=== PATIENT | female | born 1975 | race Two or more races ===

== ENCOUNTER 2024-09-04 12:14 | Emergency (ER) | payer MEDICAID, SELFPAY ==
[2024-09-04 12:39] VITALS: BP 107/67
[2024-09-04 13:12] LABS: Hematocrit 39.3 % (37.0-47.0); Hemoglobin 12.6 g/dL (12.0-16.0); Mean Corp Hgb Conc. 32.1 g/dL (33.0-37.0); Mean Corpuscular Volume 84.2 fL (81.0-99.0); Nucleated Red Blood Cells % 0 %; Platelet Count 259 10^3/uL (130-400); Red Cell Dist. Width 13.1 % (11.5-14.5)
[2024-09-04 13:44] LABS: ALT (SGPT) 23 U/L (0-35); AST (SGOT) 22 U/L (14-36); Albumin 4.4 g/dl (3.5-5.0); Alkaline Phosphatase 48 U/L (38-126); Blood Urea Nitrogen 11 mg/dl (7-17); Calcium 9.0 mg/dl (8.4-10.2); Carbon Dioxide 24 mmol/L (22-30); Chloride 110 mmol/L (98-107); Glucose 128 mg/dl (70-99); Potassium 4.7 mmol/L (3.5-5.1); Sodium 140 mmol/L (135-145); Total Protein 7.5 g/dl (6.3-8.2); eGFR > 60.00
[2024-09-04 13:55] LABS: Troponin I < 0.012 ng/ml
[2024-09-04 14:05] VITALS: BP 114/70
[2024-09-04 15:00] VITALS: BP 102/66
--- NOTE | 2024-09-04 15:29 | ED.GENMED ---
History of Present Illness
General
Chief Complaint: Chest Pain
Source: patient
Exam Limitations: none
Time Seen by Provider: 09/04/24 15:22
History of Present Illness
History of Present Illness:
See MDM
Past History
Past History
ED Past Medical History: None
ED Past Surgical History: Appendectomy
Social History
Tobacco: Non-smoker
Alcohol: None
Drug: None
Personal:
Living: with family
Phy Exam
Physical Exam
Physical Exam:
See MDM
Scores
Heart Score for Chest Pain Patients
STEMI patient?: No
History: Slightly or Non-Suspicious
ECG: Normal
Age: >45 - <65 years
Risk Factors: No Risk Factors
Troponin: </= Normal Limit
Heart Score for Chest Pain Patients: 1
Heart Score Risk: 2.5% MACE over next 6 weeks
Course
Orders/Labs/Results
Orders:
Orders
09/04/24 12:14
Electrocardiogram (*1) Urgent
Reason for Study: Chest Pain
EKG- Treatment ONCE
09/04/24 12:51
CXR2 [CR Chest - 2 Views ] Urgent
Comment:
Reason For Exam: chest pain
09/04/24 13:00
CMP [Comprehensive Metabolic Panel] Urgent
Complete Blood Count/With Diff Urgent
Troponin I Urgent
09/04/24 15:09
Electrocardiogram (*1) Urgent
Reason for Study: Chest Pain
EKG- Treatment ONCE
09/04/24 15:11
Troponin I Urgent
09/04/24 15:28
Cyclobenzaprine HCl [Flexeril] 10 mg PO NOW STA
Ibuprofen [Motrin] 400 mg PO NOW STA
Abnormal Lab Results
09/04/24
13:00
MCHC 32.1 L g/dL
(33.0-37.0)
Chloride 110 H mmol/L
(98-107)
Glucose 128 H mg/dl
(70-99)
09/04/24 13:00
09/04/24 13:00
Vital Signs
Initial and Last Documented VS:
Initial Vital Signs
Temp Pulse Resp BP Pulse Ox
99.0 F 65 18 107/67 97
09/04/24 12:39 09/04/24 12:39 09/04/24 12:39 09/04/24 12:39 09/04/24 12:39
Last Documented Vital Signs
Temp Pulse Resp BP Pulse Ox
99.0 F 52 11 102/66 98
09/04/24 12:39 09/04/24 15:00 09/04/24 15:00 09/04/24 15:00 09/04/24 15:31
MDM/Problems Addressed
Differential Diagnosis Includes:
Note:
CHIEF COMPLAINT(S)
Chest pain
HISTORY OF PRESENT ILLNESS
The patient is a 49-year-old female presenting with a 3-day history of chest pain. The pain is reported as localized to the front left and extending to the back left, with some radiation down the arm. The patient denies any prior history of similar
chest pain. The patient confirmed experiencing the chest pain during the encounter. Notably, the pain has intensified today. The pain is not exacerbated by physical exertion as the patient attended the gym for the past three days without aggravation
of symptoms, although she mentioned muscle exercises did intensify the pain. Palpation of the affected area elicited some pain, consistent with musculoskeletal origin. Initial diagnostic workup, including blood tests, an electrocardiogram, and a
chest X-ray, were all within normal limits, alleviating initial concerns regarding cardiac etiology.
PHYSICAL EXAM
General: Well appearing and non-toxic
HEENT: protecting airway
Neck: appears supple
CV: No evidence of cyanosis. Regular rate and rhythm
Chest: Reproducible tenderness to left anterior intercostal musculature
Resp: No accessory muscle use. Lungs clear
Abd: Non-distended
Extremities: No deformities
Neuro: alert
Psych: Normal affect
Skin: Intact
Nursing notes reviewed and vital signs reviewed.
PROBLEM LIST
Acute:
- Chest pain, likely musculoskeletal in origin
PLAN
- Begin treatment with ibuprofen or a similar non-steroidal anti-inflammatory drug, and a muscle relaxant.
- Await results of a second set of blood work to further exclude cardiac involvement before discharge.
DIFFERENTIAL DIAGNOSIS
The Differential Diagnosis includes, in no particular order and is not limited to:
- Musculoskeletal chest pain
- Costochondritis
- Gastroesophageal reflux disease
- Panic disorder
- Pulmonary embolism
- Pneumothorax
- Pericarditis
- Myocardial infarction
- Aortic dissection
- Anxiety disorder
SOCIAL HISTORY
- Intermittent smoking history, though described as not significant.
EKG
My independent EKG interpretation is:
- Rhythm: Regular
- Heart Rate: 60 beats per minute
- Murray: Normal
- Findings: Indicates a potential STEMI (ST segment elevation myocardial infarction)
Disposition:
SUMMARY OF ENCOUNTER
The patient, a 49-year-old female, was seen in the emergency department for three days of chest pain, which has not been exacerbated by physical exercise and lacks exertional symptoms. Diagnostic tests, including an EKG and chest X-ray, were
performed. The EKG was non-ischemic, and troponin levels were negative on two occasions, suggesting low likelihood of acute coronary syndrome. The chest X-ray was also clear. Her pain is reproducible upon palpation and seems to be associated with
particular exercises she has been doing at the gym. The patient has started treatment with NSAIDs and a muscle relaxant, as the pain is musculoskeletal in nature.
DISPOSITION
Discharge.
ASSESSMENT
Musculoskeletal chest pain, likely related to recent exercise at the gym.
PLAN
1. Continue treatment with non-steroidal anti-inflammatory drugs (NSAIDs) and a muscle relaxant as prescribed.
2. Stress the importance of follow-up with her primary care provider to assess whether any additional cardiac evaluation is needed.
INDEPENDENT REVIEW OF LABS AND INTERPRETATION OF TESTS
- My independent review of EKG is non-ischemic.
- My independent interpretation of the chest X-ray is clear.
FOLLOW-UP INSTRUCTIONS
Follow up with primary care provider to discuss the possibility of cardiac evaluation and to monitor the progression of musculoskeletal pain.
MEDICATION RECONCILIATION
The patient was started on NSAIDs and a muscle relaxant.
MEDICAL DECISION MAKING
- Number and Complexity of Problems Addressed: Differential Diagnosis includes musculoskeletal chest pain, costochondritis, gastroesophageal reflux disease, panic disorder, and anxiety disorder.
- Data:
- Category 1: My independent review of EKG is non-ischemic; troponin levels are negative; chest X-ray interpreted as clear.
- Risk: Consideration of Admission/Observation: Escalation of care including admission/observation was considered given the complexity and risk of the patients presenting complaint, exam findings, and/or their underlying comorbidities. However,
ultimately, I feel the patient is safe for outpatient management with close follow-up. Reasoning: Work-up reassuring, does not reveal any acute life/organ-threatening processes, patients symptoms well controlled upon reevaluation, reexamination is
reassuring, vitals are stable, patient agreeable with discharge, reliable for follow-up.
DIAGNOSIS
- Musculoskeletal chest pain (ICD-10: R07.89)
*Pulse Oximetry
SaO2: 98
Oxygen Mode of Delivery: Room air
Patient hypoxic: no
*Critical Care Note
Total Time (30-74mins, 75-104mins- exclusive of procedures): Not Applicable
ED Attending Note
-
Portions of this chart may have been created with voice recognition software.� Occasional wrong word or��sound alike� substitutions may have occurred due to the inherent limitations of voice recognition software.
Discharge Plan
Departure
Patient Disposition: Home (Routine Discharge)
Date of Disposition: 09/04/24
Time of Disposition: 15:53
Patient with high blood pressure during this ER visit?: No
Discharge Problem:
Chest pain
Instructions: Chest Pain PCP Follow Up
Prescriptions:
New
metaxalone 800 mg tablet
800 mg PO BID PRN (Reason: muscle pain) Qty: 10 0RF
No Action
ondansetron 4 MG tablet,disintegrating
4 mg PO TIDPRN PRN (Reason: nausea/vomiting) Qty: 15 0RF
omeprazole 20 mg capsule,delayed release(DR/EC)
20 mg PO DAILY Qty: 30 0RF
ciprofloxacin HCl 0.3 % drops
2 drp ophthalmic (eye) Q4H 5 Days Qty: 5 0RF
Referrals:
NONE,* [Family Provider, Internal Medicine]
Activity Restrictions/Additional Instructions:
Please return for any worsening symptoms.
You may return at any time if you have further concerns.
Please follow up with your doctor at the first available appointment, preferably this week.
Thank you for choosing [facility].
Interventions
Interventions:
*Risk Screen - Suicide Last Done: 09/04/24 12:39
*General Assessment Last Done: 09/04/24 14:05
*Neglect/Abuse Screening Last Done: 09/04/24 14:05
*ED- Fall Risk Assessment Last Done: 09/04/24 14:05
*ED COVID-19 Vaccine History Last Done: 09/04/24 12:39
ED- Cardiac Assessment Last Done: 09/04/24 14:05
Discharge Date and Time
Print Language: BELARUSIAN
[2024-09-04] MEDS: MOTRIN 400 MG PO (15:35)
[2024-09-04] MEDS: FLEXERIL 10 MG PO (15:36)
[2024-09-04 15:48] LABS: Troponin I < 0.012 ng/ml
== END 2024-09-04 15:58 | disposition home or self-care (01) ==
LOC: EMR 12:14
PROVIDERS: Emergency Medicine; EMERGENCY PHYSICIAN Student in an Organized Health Care Education/Training Program
DX: R07.89 Other chest pain (principal); Z90.49 Acquired absence of other specified parts of digestive tract
CPT/HCPCS: 99283; 71046; 80053; 84484; 85025; 93005

== ENCOUNTER 2024-09-29 15:20 | Emergency (ER) | payer MEDICAID, SELFPAY ==
[2024-09-29 15:25] VITALS: BP 113/72
[2024-09-29 16:00] VITALS: BP 106/64; BMI 32.9
--- NOTE | 2024-09-29 16:21 | ED.GENMED ---
History of Present Illness
General
Chief Complaint: Nose Bleed
Source: patient and family
Exam Limitations: none
Time Seen by Provider: 09/29/24 15:59
Nursing documentation reviewed up to this point in time: agreed with
History of Present Illness
History of Present Illness:
Patient is a 49-year-old female brought to the ER by son. Patient speaks a little bit of Serbian son is assisting in translation .
son reports patient has had intermittent bleeding from her left nostril for the past 4 days. No prior history of nosebleeds in the past. Patient had several episodes today. Bleeding does stop on its own. She is not on blood thinners. She did
have mild headache today. Denies dizziness, blurry vision
Past History
Past History
ED Past Medical History: None
ED Past Surgical History: Appendectomy
Social History
Tobacco: Non-smoker
Alcohol: None
Drug: None
Personal:
Living: with family
Phy Exam
General Physical Exam
General Presentation: no apparent distress
General age: appears stated age
General Skin: warm and dry
General Habitus: normal
General Mental: alert
General Hydration: appears well hydrated
ENT Exam
ENT Exam: other (left nares with dried blood to media septum region , no active bleeding )
Eye Exam
Eye Exam: PERRL and EOMI
Eye Exam General: PERRL: bilateral and EOM intact: bilateral
Pupil Exam: Bilateral: round and reactive
Neurological Exam
Neurological Exam: alert and oriented x3
Musculoskeletal Exam
Musculoskeletal Exam: full ROM
Skin Exam
Skin Exam: normal color and warm/dry
Psychiatric Exam
Psychiatric Exam: normal mood/affect
Course
Orders/Labs/Results
Orders:
Orders
09/29/24 16:31
Complete Blood Count/With Diff Urgent
Comprehensive Metabolic Panel Urgent
PT/INR [Prothrombin Time] Urgent
PTT Urgent
Abnormal Lab Results
09/29/24
16:31
RBC 4.13 L 10^6/uL
(4.20-5.40)
Hgb 11.3 L g/dL
(12.0-16.0)
Hct 34.0 L %
(37.0-47.0)
PT 14.7 H Sec
(11.4-14.6)
Chloride 109 H mmol/L
(98-107)
Glucose 118 H mg/dl
(70-99)
09/29/24 16:31
09/29/24 16:31
Vital Signs
Initial and Last Documented VS:
Initial Vital Signs
Temp Pulse Resp BP Pulse Ox
98 F 72 16 113/72 99
09/29/24 15:25 09/29/24 15:25 09/29/24 15:25 09/29/24 15:25 09/29/24 15:25
Last Documented Vital Signs
Temp Pulse Resp BP Pulse Ox
98 F 64 18 106/64 100
09/29/24 15:25 09/29/24 16:00 09/29/24 16:00 09/29/24 16:00 09/29/24 16:26
Procedures
Nosebleed
Treatment: Silver nitrate cautery
MDM/Problems Addressed
Differential Diagnosis Includes:
Not limited to epistaxis
MDM/Problems Addressed:
Patient with intermittent nosebleed from left nares for the past 4 days no prior history of nosebleeds. Patient with blood to left nares but no active bleeding. I did cauterize this to hopefully assist with future bleeding labs were checked
including coags and CBC no acute abnormal findings. As discussed we will refer to ENT. I did review this with son and patient. Patient also request information for local care transitions manager as she has issues with ingrown toe nails.
*Pulse Oximetry
SaO2: 100
Oxygen Mode of Delivery: Room air
Patient hypoxic: no
*Critical Care Note
Total Time (30-74mins, 75-104mins- exclusive of procedures): Not Applicable
ED Attending Note
-
Portions of this chart may have been created with voice recognition software.� Occasional wrong word or��sound alike� substitutions may have occurred due to the inherent limitations of voice recognition software.
Discharge Plan
Departure
Patient Disposition: Home (Routine Discharge)
Date of Disposition: 09/29/24
Time of Disposition: 17:37
Patient with high blood pressure during this ER visit?: No
Condition: Fair
Covid-19: Not Applicable
Discharge Problem:
Epistaxis
Instructions: Nosebleeds (DC)
Prescriptions:
No Action
ondansetron 4 MG tablet,disintegrating
4 mg PO TIDPRN PRN (Reason: nausea/vomiting) Qty: 15 0RF
omeprazole 20 mg capsule,delayed release(DR/EC)
20 mg PO DAILY Qty: 30 0RF
ciprofloxacin HCl 0.3 % drops
2 drp ophthalmic (eye) Q4H 5 Days Qty: 5 0RF
metaxalone 800 mg tablet
800 mg PO BID PRN (Reason: muscle pain) Qty: 10 0RF
Referrals:
Jared Barros MD [Active, Otology]
UNKNOWN - PT DOES,NOT KNOW [Family Provider]
Nyasia Slaughter DPM [Specified Professional Personl, Podiatry]
Activity Restrictions/Additional Instructions:
As discussed a small amount of silver nitrate was used to cauterize area of bleeding. Do not put your fingers in your nose. Do not blow your nose for at least 48 hours. Please call ENT Tuesday for an appointment next week for reevaluation of
symptoms. Return if any worsening of symptoms.
Interventions
Interventions:
*Risk Screen - Suicide Last Done: 09/29/24 15:25
*General Assessment Last Done: 09/29/24 16:00
*Neglect/Abuse Screening Last Done: 09/29/24 15:25
*ED- Fall Risk Assessment Last Done: 09/29/24 16:34
*ED COVID-19 Vaccine History Last Done: 09/29/24 16:34
ED-EENT Assessment Last Done: 09/29/24 16:00
Discharge Date and Time
Print Language: ALGERIAN
[2024-09-29 16:39] LABS: Hematocrit 34.0 % (37.0-47.0); Hemoglobin 11.3 g/dL (12.0-16.0); Mean Corp Hgb Conc. 33.2 g/dL (33.0-37.0); Mean Corpuscular Volume 82.3 fL (81.0-99.0); Nucleated Red Blood Cells % 0 %; Platelet Count 227 10^3/uL (130-400); Red Cell Dist. Width 13.0 % (11.5-14.5)
[2024-09-29 16:54] LABS: INR 1.09; PT 14.7 Sec (11.4-14.6)
[2024-09-29 16:55] LABS: APTT 30.2 Sec (23.4-35.0)
[2024-09-29 17:07] LABS: ALT (SGPT) 13 U/L (0-35); AST (SGOT) 17 U/L (14-36); Albumin 4.1 g/dl (3.5-5.0); Alkaline Phosphatase 42 U/L (38-126); Blood Urea Nitrogen 10 mg/dl (7-17); Calcium 9.3 mg/dl (8.4-10.2); Carbon Dioxide 27 mmol/L (22-30); Chloride 109 mmol/L (98-107); Estimated Creatinine Clearance 102 ml/min; Glucose 118 mg/dl (70-99); Potassium 4.7 mmol/L (3.5-5.1); Sodium 138 mmol/L (135-145); Total Protein 7.0 g/dl (6.3-8.2); eGFR > 60.00
== END 2024-09-29 17:53 | disposition home or self-care (01) ==
LOC: EMR 15:20
PROVIDERS: Nurse Practitioner; EMERGENCY PHYSICIAN Emergency Medicine
DX: R04.0 Epistaxis (principal); L60.0 Ingrowing nail
CPT/HCPCS: 30901; 99283; 80053; 85025; 85610; 85730; 99284

== ENCOUNTER 2024-10-23 10:55 | Emergency (ER) | payer MEDICAID, SELFPAY ==
[2024-10-23 11:00] VITALS: BP 108/70
--- NOTE | 2024-10-23 11:41 | ED.GENMED ---
History of Present Illness
General
Chief Complaint: Abdominal Pain
Time Seen by Provider: 10/23/24 11:15
History of Present Illness
History of Present Illness:
49-year-old female presents to the emergency department for evaluation of bilateral lower back as well as lower abdominal pain for the past 3 days. Worse with movement or when attempting to sit down. She states that she had gone to the gym the day
prior and thought it could be a pulled muscle however the symptoms have not gone away. She denies any fever, chills, sweats, nausea, vomiting, or diarrhea. No lower urinary tract voiding symptoms. Prior abdominal surgery includes appendectomy.
No known prescription medications.
Past History
Past History
ED Past Medical History: None
ED Past Surgical History: Appendectomy
Social History
Tobacco: Non-smoker
Alcohol: None
Drug: None
Personal:
Living: with family
Review of Systems
Review of Systems
Allergies reviewed?: Yes
All Other Systems: ROS reviewed and negative except as documented in HPI and ROS
Phy Exam
Physical Exam
Physical Exam:
GEN: Well appearing, NAD, WDWN
HEENT: Oral mucosa moist, no scleral icterus
Cardiac: Regular rate
Lung: No respiratory distress, no tachypnea
Abdomen: Soft, mildly tender diffusely to the anterior lower abdomen, no CVA tenderness
MSK: No gross deformity or injuries. Tenderness elicited to the bilateral lumbar paraspinous musculature with no midline tenderness
Skin: Good color, no pallor or jaundice, no rashes
Neuro: AO x3, moves all extremities freely
Psych: Calm, cooperative
Course
Orders/Labs/Results
Orders:
Orders
10/23/24 11:31
CT Abd/Pel (IV only)-DH only Urgent
Comment:
Reason For Exam: lower abd/low back pain
10/23/24 11:32
Test Result ONCE
10/23/24 11:40
Complete Blood Count/No Diff Urgent
Comprehensive Metabolic Panel Urgent
HCG, Serum Qualitative Screen Urgent
10/23/24 13:05
Urinalysis Reflex To Culture Urgent
Date Specimen was Collected: 10/23/24
Time Specimen was Collected: 12:31
Urine Microscopic Reflex Cult Urgent
Urine Culture Urgent
LASHAE Source: U
Specimen Description:
Date Specimen was Collected: 10/23/24
Time Specimen was Collected: 12:31
Abnormal Lab Results
10/23/24 10/23/24
11:40 13:05
Hgb 11.8 L g/dL
(12.0-16.0)
Hct 36.8 L %
(37.0-47.0)
MCH 26.0 L pg
(27.0-31.0)
MCHC 32.1 L g/dL
(33.0-37.0)
Chloride 108 H mmol/L
(98-107)
Glucose 101 H mg/dl
(70-99)
Leukocyte Esterase Rfl 1+ A
(Negative)
Urine RBC 3-6 A /HPF
(0-2)
Urine Bacteria (Reflex) Few A
(Negative)
10/23/24 11:40
10/23/24 11:40
Vital Signs
Initial and Last Documented VS:
Initial Vital Signs
Temp Pulse Resp BP Pulse Ox
98.8 F 72 18 108/70 98
10/23/24 11:00 10/23/24 11:00 10/23/24 11:00 10/23/24 11:00 10/23/24 11:00
Last Documented Vital Signs
Temp Pulse Resp BP Pulse Ox
98.8 F 63 20 107/64 99
10/23/24 11:00 10/23/24 15:38 10/23/24 15:38 10/23/24 15:36 10/23/24 15:36
MDM/Problems Addressed
MDM/Problems Addressed:
Imaging shows no evidence for obvious acute abdominal pathology however the patient is noted to have a small involuting ovarian cyst, this is not likely the etiology to symptoms. Will discharge on NSAIDs for likely musculoskeletal etiology
*Pulse Oximetry
SaO2: 98
Oxygen Mode of Delivery: Room air
Patient hypoxic: no
*Critical Care Note
Total Time (30-74mins, 75-104mins- exclusive of procedures): Not Applicable
ED Attending Note
-
Portions of this chart may have been created with voice recognition software.� Occasional wrong word or��sound alike� substitutions may have occurred due to the inherent limitations of voice recognition software.
Discharge Plan
Departure
Patient Disposition: Home (Routine Discharge)
Date of Disposition: 10/23/24
Time of Disposition: 15:32
Patient with high blood pressure during this ER visit?: No
Discharge Problem:
Abdominal pain
Instructions: Abdominal Pain
Prescriptions:
New
celecoxib [Celebrex] 200 mg capsule
200 mg PO BID Qty: 20 0RF
No Action
ondansetron 4 MG tablet,disintegrating
4 mg PO TIDPRN PRN (Reason: nausea/vomiting) Qty: 15 0RF
omeprazole 20 mg capsule,delayed release(DR/EC)
20 mg PO DAILY Qty: 30 0RF
ciprofloxacin HCl 0.3 % drops
2 drp ophthalmic (eye) Q4H 5 Days Qty: 5 0RF
metaxalone 800 mg tablet
800 mg PO BID PRN (Reason: muscle pain) Qty: 10 0RF
Referrals:
UNKNOWN - PT DOES,NOT KNOW [Family Provider]
Interventions
Interventions:
*Risk Screen - Suicide Last Done: 10/23/24 11:43
*General Assessment Last Done: 10/23/24 11:00
*Neglect/Abuse Screening Last Done: 10/23/24 11:43
*ED- Fall Risk Assessment Last Done: 10/23/24 11:43
*ED COVID-19 Vaccine History Last Done: 10/23/24 11:43
*Nursing Disposition Last Done: 10/23/24 15:39
OI-Midpkl-Sfxsyypebu Assessment Last Done: 10/23/24 11:43
Discharge Date and Time
Print Language: THAI
[2024-10-23 11:48] LABS: Hematocrit 36.8 % (37.0-47.0); Hemoglobin 11.8 g/dL (12.0-16.0); Mean Corp Hgb Conc. 32.1 g/dL (33.0-37.0); Mean Corpuscular Volume 81.2 fL (81.0-99.0); Platelet Count 234 10^3/uL (130-400); Red Cell Dist. Width 13.1 % (11.5-14.5)
[2024-10-23 12:00] VITALS: BP 105/65
[2024-10-23 12:01] LABS: HCG, Serum Qualitative Screen Negative
[2024-10-23 12:23] LABS: ALT (SGPT) 15 U/L (0-35); AST (SGOT) 18 U/L (14-36); Albumin 4.5 g/dl (3.5-5.0); Alkaline Phosphatase 38 U/L (38-126); Blood Urea Nitrogen 9 mg/dl (7-17); Calcium 9.5 mg/dl (8.4-10.2); Carbon Dioxide 24 mmol/L (22-30); Chloride 108 mmol/L (98-107); Glucose 101 mg/dl (70-99); Potassium 4.5 mmol/L (3.5-5.1); Sodium 139 mmol/L (135-145); Total Protein 7.6 g/dl (6.3-8.2); eGFR > 60.00
[2024-10-23 13:06] VITALS: BP 114/71
[2024-10-23 13:24] LABS: Urine Character Clear (Clear)
[2024-10-23 13:41] LABS: Urine Squamous Cell 16-20 /LPF (Few)
[2024-10-23 15:36] VITALS: BP 107/64
== END 2024-10-23 15:40 | disposition home or self-care (01) ==
LOC: EMR 10:55
PROVIDERS: Physician Assistant; EMERGENCY PHYSICIAN Student in an Organized Health Care Education/Training Program
DX: R10.9 Unspecified abdominal pain (principal)
CPT/HCPCS: 99284; 74177; 80053; 81003; 81015; 84703; 85027; 87086; Q9967